=== PATIENT | female | born 1945 | race Caucasian/White ===

== ENCOUNTER 2016-11-12 22:28 | Inpatient (IN) | payer MEDICARE, OTHER ==
--- NOTE | ~2016-11-12 | HP ---
History And Physical [place] [id number] [facility] [place]. [address] NAME: HEATHER LOYA : 47 STATUS : ADM IN [facility]#: [id number] AGE: 71 ADM/REG DATE : 11/12/16 MR#: [id number] REPORT SERV DATE: 11/13/16 DICTATED BY: DARREN BABIN DATE: 11/13/16 REPORT STATUS : Draft TRANSCRIBED BY: MODRomana DATE: 11/13/16 DATE OF ADMISSION: 11/12/2016 This is a patient of Dr. Sin's. CHIEF COMPLAINT: Rectal bleeding. HISTORY OF PRESENT ILLNESS: A 71-year-old female, status post a two-column hemorrhoidectomy on 10/31/2016 for chronic bright red bleeding per rectum. The patient convalesced well after surgery. Did not have any problems. Did have normal bowel movements. No blood until yesterday evening when the patient began to pass clotted blood per rectum. The patient had approximately 20 bowel movements over the evening and night into the morning and presented to the ER because of that. She has had some mild anorectal pain associated with that, but no other symptoms. REVIEW OF SYSTEMS: Negative x10 except as noted previously. PAST MEDICAL HISTORY: Chronic pain in her back, anxiety, gastroesophageal reflux disease, hyperlipidemia, and seasonal allergies. PAST SURGICAL HISTORY: Laminectomy, has had minimally invasive done here; left inguinal hernia; plus the above stated procedures. She has also had an abdominoplasty x3, hysterectomy, bilateral oophorectomy, colectomy in 2011. ALLERGIES: NO KNOWN DRUG ALLERGIES. SOCIAL HISTORY: Negative x3. . FAMILY HISTORY: Noncontributory. PHYSICAL EXAMINATION: GENERAL: A and O x4, 98.7, heart rate of 108, blood pressure 132/60, respirations 20, 98%. HEENT: PERRL. EOMI. NECK: Supple. Trachea is midline. No JVD. CHEST: Clear to auscultation bilaterally. HEART: She is mildly tachycardic. No murmurs. ABDOMEN: Soft, nontender, nondistended. EXTREMITIES: Moves all extremities x4. No cyanosis, clubbing, or edema. NEURO: Cranial nerves 2 through 12 grossly intact. RECTAL: She has some small amount of old blood visible around the anus. The healing suture lines are visible externally. 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 No other palpable abnormalities. LABORATORY DATA: H and H are now 8.9 and 26.4, was 37 at her discharge after surgery. BMP 143, 3.4, 106, 27, 9, 0.95, and 102. Albumin is 3.1. LFTs are normal. History And Physical [address] [address] NAME: HEATHER LOYA : [birth year] STATUS : ADM IN [facility]#: [id number] AGE: 71 ADM/REG DATE : 11/12/16 MR#: [id number] REPORT SERV DATE: 11/13/16 DICTATED BY: DARREN BABIN DATE: 11/13/16 REPORT STATUS : Draft TRANSCRIBED BY: MARGARET DATE: 11/13/16 IMPRESSION AND PLAN: A 71-year-old female with hematochezia, is two weeks status post a two- column hemorrhoidectomy by Dr. Sin. The bleeding has now slowed and/or stopped. We will monitor the patient in-house for now and hold off with an exam under anesthesia. Plan will be to type and cross 2 units, q.4-hour H and H's, and exam under anesthesia if the patient has a rebleeding episode. RUDOLPH/MARGARET Darren Babin M.D. / [id number] CC: MD Sharla Urbano M.D.
[2016-11-12 21:38] LABS: BASOPHILS 0.9 %; BASOPHILS ABSOLUTE 0.06 10/3/uL (0.0-0.16); EOSINOPHILS 4.7 %; HEMOGLOBIN 10.4 g/dL (12.0-16.0); IMMATURE GRANULOCYTES 0.6 %; IMMATURE GRANULOCYTES ABSOLUTE 0.04 10/3/uL (0.0-0.11); LYMPHOCYTES 44.8 %; LYMPHOCYTES ABSOLUTE 2.87 10/3/uL (0.67-4.30); MEAN CORPUS HGB CONC 33.2 g/dL (32.0-36.0); MEAN CORPUSCULAR HEMOGLOB 28.7 pg (26.0-34.0); MEAN CORPUSCULAR VOLUME 86.2 fL (80-100); MONOCYTES 9.1 %; MONOCYTES ABSOLUTE 0.58 10/3/uL (0.21-1.20); NEUTROPHILS 39.9 %; NEUTROPHILS ABSOLUTE 2.55 10/3/uL (2.02-8.40); PLATELET COUNT 308 10/3/uL (150-400); RBC DISTRIBUTION WIDTH 13.4 % (12.0-16.0); RED CELL COUNT 3.63 10/6/uL (4.0-5.6); WHITE BLOOD CELLS 6.4 10/3/uL (4.5-10.5)
[2016-11-12 21:39] LABS: HEMATOCRIT 31.3 % (36.0-48.0); MANUAL DIFF NO %
[2016-11-12 21:50] LABS: PARTIAL THROMBO TIME 25.5 SEC (22.5-37.2)
[2016-11-12 21:53] LABS: BUN (BLOOD UREA NITROGEN) 9 MG/DL (6-23); CALCIUM, SERUM 8.4 MG/DL (8.5-10.4); CHLORIDE, SERUM 106 MMOL/L (96-112); CO2 (CARBON DIOXIDE) 27 MMOL/L (24-34); CREATININE 0.95 MG/DL (0.55-1.02); GFR AFRICAN AMERICAN 70 ML/MIN (>=60); GFR NON AFRICAN AMERICAN 61 ML/MIN (>=60); GLUCOSE, SERUM 102 MG/DL (60-99); POTASSIUM, SERUM 3.4 MMOL/L (3.5-5.3); SGOT(AST) 21 U/L (5-40); SGPT(ALT) 17 U/L (5-65); SODIUM, SERUM 143 MMOL/L (135-148); TOTAL BILIRUBIN 0.5 MG/DL (0-1.2); TOTAL PROTEIN 6.7 G/DL (6.0-8.5)
[2016-11-12 21:55] LABS: ALBUMIN 3.1 G/DL (3.5-5.0)
[2016-11-12 21:56] LABS: A/G RATIO 0.9 (0.7-1.9); ALKALINE PHOSPHATASE 98 U/L (45-117); GLOBULIN 3.6 G/DL (2.5-4.1)
[~2016-11-12 22:28] MED LIST: CLARIT10 PO; CO Q-10 OTC PO; CO Q-10200 MG PO; CRESTOR10 PO; CYMBALTA30 PO; CYMBALTA60 PO; DIL2TAB PO; DSS PO; ENABLEX15 PO; ESTRACE1 MG PO; FLEX PO; METHOC750B PO; MSCONT15 PO; MULTIVITAMI1 PO; MYRBETRIG OR; NEUR300 PO; NEUR400 PO; NEXIUM20 M1 PO; NEXIUM40 PO; OXYCOD PO; PERCOCET1 TA4 PO; PREVALITE4 G1 PO; REQUIP25 PO; V2 PO; VIT B-SIX 50 MG50 MG PO; VITAMIN B-6 OTC PO; VITAMIN B-6 PO; VITAMIN D OTC PO; VITAMIN D3 PO; ZANAFLEX 4 MG TA4 MG PO
[2016-11-13 01:43] LABS: HEMATOCRIT 26.4 % (36.0-48.0); HEMOGLOBIN 8.9 g/dL (12.0-16.0)
[2016-11-13 06:01] LABS: HEMATOCRIT 22.3 % (36.0-48.0); HEMOGLOBIN 7.2 g/dL (12.0-16.0)
[2016-11-13 08:59] LABS: HEMATOCRIT 23.3 % (36.0-48.0); HEMOGLOBIN 7.7 g/dL (12.0-16.0)
[2016-11-13 15:19] LABS: HEMATOCRIT 30.9 % (36.0-48.0); HEMOGLOBIN 10.1 g/dL (12.0-16.0)
[2016-11-13 21:52] LABS: HEMATOCRIT 30.5 % (36.0-48.0)
[2016-11-14 07:37] LABS: HEMATOCRIT 30.5 % (36.0-48.0); HEMOGLOBIN 10.3 g/dL (12.0-16.0)
== END 2016-11-14 17:03 | disposition home or self-care (01) | DRG 378 ==
LOC: ER 22:28 → 5SO 22:39
PROVIDERS: Emergency Medicine; Surgery
PROC: 30233N1 Transfusion of Nonautologous Red Blood Cells into Peripheral Vein, Percutaneous Approach (ICD-10-PCS; principal; 2016-11-13)
DX: K92.1 Melena (principal); D62 Acute posthemorrhagic anemia; F41.9 Anxiety disorder, unspecified; K21.9 Gastro-esophageal reflux disease without esophagitis; G89.29 Other chronic pain; Z79.899 Other long term (current) drug therapy; Z90.710 Acquired absence of both cervix and uterus
CPT/HCPCS: 36415; 71010; 80053; 85014; 85018; 85025; 85610; 85730; 86850; 86900; 86901; 86920; 96374; 99285; A9270-GY; C9113; P9016